=== PATIENT | female | born 1945 | race Caucasian/White ===

== ENCOUNTER 2017-12-13 12:09 | Emergency (ER) | payer MEDICARE ==
[2017-12-13] MEDS ORDERED: ISOVUE-370 76%-LOCM 1 ML ONE (14:08)
[2017-12-13 14:11] LABS: #Lymphocytes 1.4 thou/uL (1.20-3.40); #Monocytes 0.7 thou/uL (0.11-0.59); #Neutrophils 5.5 thou/uL (1.40-6.50); %Basophils 0.6 % (0.0-1.0); %Eosinophils 0.3 % (0.0-10.0); %Lymphocytes 18.7 % (21.0-51.0); %Monocytes 9.4 % (0.0-10.0); Hemoglobin 14.1 g/dL (12.0-16.0); Mean Corpuscular HGB CONC 31.6 g/dL (32.0-36.0); Mean Corpuscular Hemoglobin 31.2 pg (27.0-31.0); Mean Corpuscular Volume 98.9 fl (81.0-99.0); Platelet Count 217 thou/uL (130-400); RBC Distribution Width 13.9 % (11.5-14.5); Red Blood Cell (RBC) Count 4.53 mill/uL (4.20-5.40); White Blood Cell (WBC) Count 7.7 thou/uL (4.8-10.8)
[2017-12-13 14:32] LABS: ALT (SGPT) 107 U/L (8-55); AST (SGOT) 55 U/L (5-34); Albumin 3.9 g/dL (3.4-4.8); Alkaline Phosphatase 79 U/L (40-150); Anion Gap 12 mmol/L (10-20); BUN (Urea Nitrogen) 20 mg/dL (9.8-20.1); Bilirubin, Total 1.2 mg/dL (0.2-1.2); Calc. Creatinine Clearance 0 mL/min (70-130); Calcium 9.4 mg/dL (7.8-10.44); Carbon Dioxide 26 mmol/L (23-31); Chloride 108 mmol/L (98-107); Estimated GFR-MDRD Greater than 90; Globulin 2.3 g/dL (2.4-3.5); Glucose 115 mg/dL (83-110); Potassium 4.3 mmol/L (3.5-5.1); Protein, Total 6.2 g/dL (6.0-8.3); Sodium 142 mmol/L (136-145)
--- NOTE | 2017-12-13 15:25 | CT ---
CT CHEST AND ABDOMEN ANDP JAIDEN WITH IV CONTRAST: Date: 12/13/17 PROVIDED CLINICAL HISTORY: Right breast mass. FINDINGS: No comparison examinations are currently available. Vascular calcifications noted, including coronary calcium. The heart is enlarged, primarily on the ba sis of right atrial and right ventricular enlargement. Aortic valvular region calcifications are also seen. Conspicuous by number but not pathologically enlarged lymph nodes are present within the mediastinum. The lungs are free of significant opacity. Trace right pleural fluid is present. There is a large right breast mass which appears solid. This measures at least 12.0 x 5.8 cm in great est axial dimensions. The deep margin of this mass approximates the right chest wall, though a fat pl ane between the mass and the ribs in this region is seen. Multiple nodular masses are present through out the lateral right breast, which appear asymmetric with respect to the left. Multiple enlarged lym ph nodes are seen within the right axillary region. Nonspecific subcentimeter left thyroid lobe hypod ensity. The liver, spleen, pancreas, kidneys, and adrenal glands demonstrate no acute abnormality. There is n o bowel dilatation, inflammatory fat stranding, free fluid, or lymph node enlargement apparent. The osseous structures demonstrate no definite concerning lytic or blastic lesion. There is a 12.0 mm sclerotic focus in the medial right iliac wing which is indeterminate. IMPRESSION: 1. Large right breast mass with numerous satellite lesions and right axillary adenopathy, compatible with malignancy. 2. Indeterminate 12 mm sclerotic right iliac wing lesion. Consider correlating with whole body bone scan on a nonemergent basis. 3. Trace right pleural fluid. 4. Other findings as described above. POS: JEROD
== END 2017-12-13 16:54 | disposition home or self-care (01) ==
LOC: ERS 12:09
DX: C50.911 Malignant neoplasm of unspecified site of right female breast (principal)
CPT/HCPCS: 71260; 74177; 80053; 85025; 99282

== ENCOUNTER 2017-12-18 08:52 | Day surgery (SDC) | payer MEDICARE ==
[2017-12-18] MEDS ORDERED: CEFAZOLIN/Water 2 GM/20 ML SYRINGE ONE (09:22)
[2017-12-18] MEDS ORDERED: Fentanyl 250 MCG/5 ML VIAL ONE (09:37)
[2017-12-18] MEDS ORDERED: Midazolam HCl 2 mg/2 ml Vial ONE ×2 (09:37→09:53)
[2017-12-18] MEDS ORDERED: Propofol 500 MG/50 ML VIAL ONE (09:38)
[2017-12-18] MEDS ORDERED: Bupivacaine/Epinephrine 0.25% 30 ML VIAL ONE (09:47)
--- NOTE | 2017-12-18 13:02 | OP ---
DATE OF PROCEDURE: 12/18/2017 PREOPERATIVE DIAGNOSES: Advanced right breast cancer with metastatic disease. SURGEON: Curtis Lorenzo M.D. PROCEDURE PERFORMED: MediPort placement. INDICATIONS: A 72-year-old female with advanced breast cancer needs neoadjuvant therapy. FINDINGS: Good backflow of venous blood. J-wire threaded easily, placed in the left subclavian vein . PROCEDURE: After informed consent was obtained, the patient was taken to the operating room, given t otal intravenous anesthesia, placed in the supine position. Chest and neck prepped and draped in usu al fashion. Local anesthesia infiltrated subcutaneously and deep. An introducer needle inserted. L eft subclavian with good backflow of venous blood. J-wire threaded easily. Fluoroscopy was used, sh owed good placement in the superior vena cava. Skin and subcutaneous then anesthetized with local an esthesia. Transverse chest wall incision was performed. The subcu divided sharply. A pocket create d sharply on the pectoralis fascia. The tunneling device was used to connect the 2 incisions and the catheter brought through the tunnel. The catheter connected to the MediPort and the system flushed with heparinized saline. The MediPort was sutured to the pectoralis fascia with interrupted 2-0 Prol liza suture. Then the catheter was cut to size and the peel-away introducer inserted over the wire. The wire was removed and the catheter inserted through the peel-away introducer, then the peel-away i ntroducer removed. Fluoroscopy again used showed good placement in superior vena cava. The subcu wa s reapproximated with interrupted 3-0 Vicryl. Skin closed with interrupted 4-0 Rapide. Dermabond ap plied. The MediPort was accessed with Amanda needle and aspirated. Good backflow of venous blood and flushed with heparinized saline. The patient tolerated the procedure well and was transferred to [facility] in good condition. Sponge and needle count verified correct x2.
--- NOTE | 2017-12-18 13:15 | RAD ---
CHEST 1 VIEW: HISTORY: A 72-year-old female with a history of postop MediPort placement. COMPARISON: CT dry plasterer film 12/13/17. FINDINGS: There is stable cardiomegaly. Left subclavian catheter and injection port placed. No evidence for p neumothorax or pleural effusion. Less than optimal inspiratory effort. No confluent pneumonia or ot her acute process. IMPRESSION: Left subclavian catheter injection port placement without pneumothorax or pleural effusion. Cardiome dolores. Less than optimal inspiration. POS: JEROD
[2017-12-18] MEDS ORDERED: PROPOFOL 200 MG/20 ML VIAL ONE (18:16)
[2017-12-18] MEDS ORDERED: Ondansetron HCl/PF 4 MG/2 ML Vial ONE (18:16)
[2017-12-18] MEDS ORDERED: Lidocaine 1% PF 5 ML VIAL ONE (18:16)
== END 2017-12-18 12:22 | disposition home or self-care (01) ==
LOC: SDC 08:52
PROVIDERS: ATTEND Surgery
PROC: 02HV33Z Insertion of Infusion Device into Superior Vena Cava, Percutaneous Approach (ICD-10-PCS; principal; 2017-12-18)
PROC: B518ZZA Fluoroscopy of Superior Vena Cava, Guidance (ICD-10-PCS; 2017-12-18)
DX: C50.911 Malignant neoplasm of unspecified site of right female breast (principal)
CPT/HCPCS: 36561; 71045; C1788; J1642; J2001; J2250; J2405; J2704; J3010

== ENCOUNTER 2017-12-21 10:33 | Outpatient (CLI) | payer MEDICARE ==
--- NOTE | 2017-12-21 15:29 | NM ---
WHOLE BODY BONE SCAN: COMPARISON: CT chest and abdomen and pelvis 12/13/17. HISTORY: Malignant neoplasm of the right breast. There is an overlapping site to the right female breast. TECHNIQUE: A whole body bone scan was performed after the administration of 32 mCi of Technetium 99m MDP. FINDINGS: Soft tissue activity is unremarkable. There is increased uptake of the radiopharmaceutical in both k nees likely secondary to degenerative change. No suspicious areas of increased or decreased uptake o f the radiopharmaceutical are seen to suggest osseous metastases. In particular, no abnormal increas ed uptake is seen adjacent to the right sacroiliac joint where the sclerotic lesion was seen on CT. IMPRESSION: No evidence of osseous metastatic disease. POS: JEROD
== END 2017-12-21 10:34 | disposition home or self-care (01) ==
LOC: NM 10:33
PROVIDERS: ATTEND Internal Medicine Hematology & Oncology
DX: C50.811 Malignant neoplasm of overlapping sites of right female breast (principal)
CPT/HCPCS: 78306; A9503

== ENCOUNTER 2018-03-17 14:27 | Inpatient (IN) | payer MEDICARE ==
[2018-03-17 15:13] LABS: #Lymphocytes 1.3 thou/uL (1.20-3.40); #Monocytes 0.3 thou/uL (0.11-0.59); #Neutrophils 1.5 thou/uL (1.40-6.50); %Basophils 0.1 % (0.0-1.0); %Eosinophils 0.2 % (0.0-10.0); %Lymphocytes 42.2 % (21.0-51.0); %Monocytes 8.1 % (0.0-10.0); %Neutrophils 49.5 % (42.0-75.0); Hemoglobin 11.3 g/dL (12.0-16.0); Mean Corpuscular HGB CONC 33.7 g/dL (32.0-36.0); Mean Corpuscular Hemoglobin 33.2 pg (27.0-31.0); Mean Corpuscular Volume 98.5 fl (81.0-99.0); Mean Platelet Volume 7.1 fL (7.4-10.4); Platelet Count 268 thou/uL (130-400); Red Blood Cell (RBC) Count 3.39 mill/uL (4.20-5.40); White Blood Cell (WBC) Count 3.1 thou/uL (4.8-10.8)
[2018-03-17 15:25] LABS: Anisocytosis SLIGHT = 6-15 cells (100X) (0-5/hpf); MDiff Complete? YES; Ovalocytes SLIGHT = 2-5 cells (100X) (0-1/hpf); PLT Morphology Comment Appears Adequate; Polychromasia SLIGHT = 2-3 cells (100X) (0-2/hpf)
[2018-03-17 15:35] LABS: Anion Gap 14 mmol/L (10-20); BUN (Urea Nitrogen) 8 mg/dL (9.8-20.1); Calc. Creatinine Clearance 0 mL/min (70-130); Calcium 9.1 mg/dL (7.8-10.44); Carbon Dioxide 26 mmol/L (23-31); Chloride 102 mmol/L (98-107); Estimated GFR-MDRD 90; Glucose 108 mg/dL (83-110); Potassium 3.5 mmol/L (3.5-5.1); Sodium 138 mmol/L (136-145)
[2018-03-17] MEDS: Sodium Chloride 0.9% 1,000 ML IV SCH (17:14)
[2018-03-17] MEDS ORDERED: HYDROcodone/Acetaminophen 5/325 mg Tablet PO PRN ×2 (18:39)
[2018-03-17] MEDS ORDERED: Docusate 100 MG CAP PO PRN (18:39)
[2018-03-17] MEDS ORDERED: Ibuprofen 200 MG TAB PO PRN (18:39)
[2018-03-17] MEDS ORDERED: Promethazine 25 MG TAB PO PRN (18:40)
[2018-03-17] MEDS ORDERED: Ondansetron ODT 8 MG TAB PO PRN (18:40)
[2018-03-17] MEDS ORDERED: Sodium Chloride 0.65% Nasal 44 ML BOT EA NARE PRN (18:41)
[2018-03-17] MEDS: Apixaban 5 MG TAB PO SCH (21:08)
[2018-03-18] MEDS: Sodium Chloride 0.9% 1,000 ML IV SCH ×3 (02:28→22:28)
--- NOTE | 2018-03-18 08:52 | RAD ---
FRONTAL AND LATERAL IMAGING OF THE CHEST: DATE: 03/18/18. COMPARISON: 12/18/17. HISTORY: Pleural fluid. FINDINGS: There is a CT injectable left-sided Port-A-Cath present. On the lateral examination, it's distal tip is directed posteriorly, which may signify that its dista l tip is within the azygous vein. No pneumothorax is seen. There is small volume pleural effusion b ilaterally, left greater than right. Cardiac silhouette is prominent. IMPRESSION: 1. Distal tip of Port-A-Cath likely in the region of the azygous vein. 2. Small bilateral pleural effusions with prominence of the cardiac silhouette as detailed above. POS: SOHAIL
[2018-03-18] MEDS: Loratadine 10 MG TAB PO SCH (09:49)
[2018-03-18] MEDS: Multivit, Therapeutic 1 TAB PO SCH (09:49)
[2018-03-18] MEDS: Stress 600 With Zinc 1 TAB PO SCH (09:51)
[2018-03-18 09:57] LABS: ALT (SGPT) 11 U/L (8-55); AST (SGOT) 14 U/L (5-34); Albumin 3.1 g/dL (3.4-4.8); Alkaline Phosphatase 50 U/L (40-150); Anion Gap 12 mmol/L (10-20); BUN (Urea Nitrogen) 7 mg/dL (9.8-20.1); Bilirubin, Total 1.3 mg/dL (0.2-1.2); Calc. Creatinine Clearance 129 mL/min (70-130); Calcium 8.2 mg/dL (7.8-10.44); Carbon Dioxide 25 mmol/L (23-31); Chloride 108 mmol/L (98-107); Estimated GFR-MDRD Greater than 90; Glucose 103 mg/dL (83-110); Magnesium 1.4 mg/dL (1.6-2.6); Potassium 3.2 mmol/L (3.5-5.1); Protein, Total 5.1 g/dL (6.0-8.3); Sodium 142 mmol/L (136-145)
[2018-03-18 11:49] VITALS: BMI 32.7
[2018-03-18] MEDS: Apixaban 5 MG TAB PO SCH (14:12)
[2018-03-18] MEDS ORDERED: Magnesium 2 GM/NS 0.9% 100 ML 2 GM in Premix Bag 1 BAG IVPB SCH (17:00)
[2018-03-18] MEDS ORDERED: Furosemide 40 MG/4 ML VIAL IVP SCH (17:15)
[2018-03-18] MEDS ORDERED: Potassium Chloride 40 MEQ in Sodium Chloride 0.9% 250 ML 250 ML IVPB SCH (17:15)
[2018-03-18] MEDS: Digoxin 0.25 MG TAB PO SCH (18:23)
[2018-03-18] MEDS: Enoxaparin Sodium 100 MG/ML SYRINGE SC SCH (20:22)
[2018-03-18] MEDS ORDERED: Diltiazem HCl SR 60 mg Capsule PO ONE (21:00)
[2018-03-19] MEDS: Digoxin 0.25 MG TAB PO SCH ×2 (01:18→11:12)
[2018-03-19 05:40] LABS: Anion Gap 12 mmol/L (10-20); BUN (Urea Nitrogen) 6 mg/dL (9.8-20.1); Calc. Creatinine Clearance 125 mL/min (70-130); Calcium 8.9 mg/dL (7.8-10.44); Carbon Dioxide 25 mmol/L (23-31); Chloride 108 mmol/L (98-107); Estimated GFR-MDRD Greater than 90; Glucose 127 mg/dL (83-110); Potassium 3.9 mmol/L (3.5-5.1); Sodium 141 mmol/L (136-145)
[2018-03-19 05:57] LABS: Band 6 % (5-11); Hemoglobin 11.1 g/dL (12.0-16.0); Lymphocytes 40 % (21-51); MDiff Complete? YES; Mean Corpuscular Hemoglobin 32.7 pg (27.0-31.0); Mean Corpuscular Volume 98.9 fl (81.0-99.0); Metamyelocyte 1 % (0-0); Monocytes 1 % (0-10); Neutrophil 52 % (42-75); PLT Morphology Comment Appears Adequate; Platelet Count 307 thou/uL (130-400); RBC Distribution Width 17.8 % (11.5-14.5); Red Blood Cell (RBC) Count 3.38 mill/uL (4.20-5.40); White Blood Cell (WBC) Count 3.5 thou/uL (4.8-10.8)
[2018-03-19] MEDS: Sodium Chloride 0.9% 1,000 ML IV SCH ×2 (08:25→21:40)
[2018-03-19] MEDS: Enoxaparin Sodium 100 MG/ML SYRINGE SC SCH ×2 (08:30→20:31)
[2018-03-19] MEDS: Stress 600 With Zinc 1 TAB PO SCH (08:32)
[2018-03-19] MEDS: Multivit, Therapeutic 1 TAB PO SCH (08:32)
[2018-03-19] MEDS: Loratadine 10 MG TAB PO SCH (08:32)
--- NOTE | 2018-03-19 08:59 | PRG ---
DATE OF SERVICE: 03/19/2018 SUBJECTIVE: Ms. Dickens appears to be slowly improving. She continues to be on IV Cardizem in additi on to p.o. Cardizem. She received a total of 240 mg yesterday morning and then an additional 60 mg y evening. I have increased her p.o. a.m. Cardizem to 360 q.a.m. She has no current complain ts. She did receive 1 dose of Lasix yesterday with appropriate diuresis. Her potassium and magnesiu m levels were also decreased and was supplemented with IV magnesium and p.o. potassium with appropria te improvement. OBJECTIVE: VITAL SIGNS: Blood pressure 100/79, pulse 100-120, temperature 97.3. LUNGS: Clear to auscultation. CARDIAC: Irregularly irregular, tachycardic. ABDOMEN: Soft, nontender, nondistended. EXTREMITIES: A 1-2+ pitting edema. PERTINENT LABORATORY DATA: Hemoglobin 11.1, white blood cell count 3.5. Sodium 141, potassium 3.9, creatinine 0.6. BNP of 403. Magnesium level 1.9. IMPRESSION: 1. Atrial fibrillation with rapid ventricular response. 2. Breast cancer. RECOMMENDATIONS: We will increase Cardizem to 360 q.a.m. We will add metoprolol 25 mg 1 p.o. b.i.d. and additionally digoxin 0.125 one p.o. q.a.m. We will try and continue to titrate her beta daniel and calcium channel daniel through the day and through the weekend. If she continues to require IV Cardizem by Thursday, we would recommend a MORIS with cardioversion. I discussed the procedure in full detail with Ms. Dickens. Her daughter, who is a nurse, was present during the discussion. Risks incl uded but are not limited to the following: Damage to teeth, mouth, back of the throat, damage to eso phagus requiring emergency surgery. This will be performed under conscious sedation. I also discuss ed a MORIS cardioversion including risk of stroke, burning of skin, failed cardioversion, or need for r epeat cardioversion. We would recommend adding propafenone tomorrow in anticipation of cardioversion on Thursday if needed.
[2018-03-19] MEDS ORDERED: Metoprolol Tartrate 25 MG TAB PO SCH (09:00)
[2018-03-20] MEDS: Metoprolol Tartrate 25 MG TAB PO SCH ×3 (00:50→21:41)
[2018-03-20] MEDS: Enoxaparin Sodium 100 MG/ML SYRINGE SC SCH ×2 (10:25→21:42)
[2018-03-20] MEDS: Stress 600 With Zinc 1 TAB PO SCH (10:27)
[2018-03-20] MEDS: Sodium Chloride 0.9% 1,000 ML IV SCH (10:28)
[2018-03-20] MEDS: Multivit, Therapeutic 1 TAB PO SCH (10:28)
[2018-03-20] MEDS: Loratadine 10 MG TAB PO SCH (10:28)
[2018-03-20] MEDS ORDERED: Sodium Chloride 0.9% 1,000 ML IV SCH (18:14)
[2018-03-20] MEDS: Apixaban 5 MG TAB PO SCH (21:41)
[2018-03-21] MEDS: Sodium Chloride 0.9% 1,000 ML IV SCH (02:43)
[2018-03-21 05:49] LABS: Anion Gap 12 mmol/L (10-20); BUN (Urea Nitrogen) 14 mg/dL (9.8-20.1); Calc. Creatinine Clearance 71 mL/min (70-130); Calcium 8.8 mg/dL (7.8-10.44); Carbon Dioxide 24 mmol/L (23-31); Chloride 109 mmol/L (98-107); Estimated GFR-MDRD 52; Glucose 115 mg/dL (83-110); Magnesium 2.1 mg/dL (1.6-2.6); Potassium 3.9 mmol/L (3.5-5.1); Sodium 141 mmol/L (136-145)
[2018-03-21 06:03] LABS: Band 3 % (5-11); Eosinophils 1 % (0-10); Hemoglobin 10.7 g/dL (12.0-16.0); Lymphocytes 21 % (21-51); MDiff Complete? YES; Mean Corpuscular HGB CONC 32.4 g/dL (32.0-36.0); Mean Corpuscular Hemoglobin 32.9 pg (27.0-31.0); Mean Platelet Volume 7.2 fL (7.4-10.4); Metamyelocyte 1 % (0-0); Monocytes 11 % (0-10); Neutrophil 63 % (42-75); PLT Morphology Comment Appears Adequate; Platelet Count 312 thou/uL (130-400); RBC Distribution Width 17.9 % (11.5-14.5); Red Blood Cell (RBC) Count 3.25 mill/uL (4.20-5.40); White Blood Cell (WBC) Count 4.9 thou/uL (4.8-10.8)
[2018-03-21] MEDS: Apixaban 5 MG TAB PO SCH (08:57)
[2018-03-21] MEDS: Multivit, Therapeutic 1 TAB PO SCH (08:57)
[2018-03-21] MEDS: Loratadine 10 MG TAB PO SCH (08:58)
[2018-03-21] MEDS: Stress 600 With Zinc 1 TAB PO SCH (09:54)
[2018-03-21 11:59] VITALS: BP 134/88; TEMP 97.3
--- NOTE | 2018-03-21 15:49 | DIS ---
DISCHARGE DIAGNOSES: 1. Paroxysmal atrial fibrillation, chemical conversion to sinus rhythm. 2. Breast cancer. DISCHARGE MEDICATIONS: Eliquis 5 mg b.i.d., Cardizem CD 360 mg daily, Colace 100 mg p.r.n., hydrocodone p.r.n., loratadine 10 mg daily, metoprolol 25 XL q.a.m., multivitamin q.a.m., Zofran 8 mg tablets p.r.n., and Phenergan 25 mg p.r.n. DISCHARGE DISPOSITION: The patient will follow with Dr. Mendoza in 2-3 weeks. HOSPITAL COURSE: Ms. Jimenez was admitted with atrial fibrillation with fast ventricular response. She was initially placed on Lovenox 1 mg/kg b.i.d. This was transitioned to Eliquis 5 mg b.i.d. She was placed on increasing doses of diltiazem to try to control her rate. She ultimately converted to sinus rhythm. Consideration was given to transesophageal echo and cardioversion; however, she converted with the above medications and was discharged. KIMD
== END 2018-03-21 16:17 | disposition home or self-care (01) | DRG 310 ==
LOC: 2NO 14:27
PROVIDERS: ADMIT Internal Medicine Cardiovascular Disease; ATTEND Internal Medicine Cardiovascular Disease
DX: I48.0 Paroxysmal atrial fibrillation (principal); C50.919 Malignant neoplasm of unspecified site of unspecified female breast
CPT/HCPCS: 36415; 71046; 80048; 80053; 82248; 83615; 83735; 83880; 84100; 84550; 85025; A4216; J1642; J1650; J1940; J3475; J3480; J7050

== ENCOUNTER 2018-05-12 06:05 | Day surgery (SDC) | payer MEDICARE ==
[2018-05-11 13:42] VITALS: BMI 31.8
[2018-05-12] MEDS ORDERED: Diazepam 5 MG TAB ONE (06:34)
[2018-05-12] MEDS ORDERED: Iopamidol 370 76% 100 ML VIAL ONE (06:53)
[2018-05-12] MEDS ORDERED: Lidocaine 1% (PF) 30 ML VIAL ONE (08:32)
[2018-05-12] MEDS ORDERED: Fentanyl 100 MCG/2 ML VIAL ONE (08:55)
[2018-05-12] MEDS ORDERED: Midazolam HCl 2 mg/2 ml Vial ONE (08:55)
[2018-05-12] MEDS ORDERED: Heparin 10,000 UNITS/1 ML VIAL ONE (09:02)
[2018-05-12] MEDS ORDERED: Nitroglycerin 100MG/250ML BOT 250 ML ONE (09:13)
--- NOTE | 2018-05-12 15:16 | CON ---
DATE OF CONSULTATION: 05/12/2018 REASON FOR CONSULTATION: Evaluate the patient for coronary artery bypass grafting. HISTORY OF PRESENT ILLNESS: Ms. Dickens is a 72-year-old woman, who was admitted for cardiac catheter ization on an elective basis today. Dr. Mendoza has seen her recently for atrial fibrillation. Mayela matos was able to be converted back into sinus rhythm from her atrial fibrillation. She, unfortunately, also has a history of stage 3B carcinoma of the breast with local invasion through the skin on the ri ght breast. She has completed her chemotherapy and is currently on hormonal therapy only orally. Mayela matos has lost all of her hair. The area of erosion under her right breast has healed, but still has a l arge open area, approximately 3 cm in length. Plans for her breast cancer include continued hormonal therapy to healing and subsequent right mastec ling. The patient, from a cardiac standpoint, has remained asymptomatic. She has had no chest pain. Her s hortness of breath has resolved after converting her back into sinus rhythm. She was monitored with an at-home monitor and found to have a couple of runs of ventricular tachycardia, which were asymptom atic. Due to these VT runs, she was brought in for elective cardiac catheterization. Cardiac cathet erization has shown a 99% lesion in acute marginal, 50-60% left main lesion with a 60% proximal LAD l esion. I have been asked to see her to discuss coronary artery bypass grafting. PAST MEDICAL HISTORY: 1. Hypertension. 2. Dyslipidemia. 3. Stage 3B breast cancer. 4. Coronary artery disease. PAST SURGICAL HISTORY: 1. x2. 2. Breast biopsy. CURRENT MEDICATIONS: 1. Toprol-XL 25 mg every day. 2. Cardizem-CD 360 mg every day. 3. Eliquis 5 mg b.i.d. 4. Anastrozole 1 mg every day. ALLERGIES: None. SOCIAL HISTORY: She does not use tobacco or alcohol. She is and accompanied by her and daughter. PHYSICAL EXAMINATION: GENERAL: This is a moderately obese woman, resting comfortably without chest pain or shortness of br eath. VITAL SIGNS: Heart rate is 78 and regular, blood pressure is 130/72. HEENT: Sclerae nonicteric. Pupils equal and round bilaterally. NECK: Supple, without bruit. LUNGS: Clear bilaterally. She has eroding right breast cancer, which, according to the patient and family, has improved with therapy. HEART: Rhythm is regular. EKG shows normal sinus rhythm. ABDOMEN: Soft and nontender. EXTREMITIES: There is no edema. ASSESSMENT AND PLAN: This is a pleasant 72-year-old woman with a stage 3B breast cancer. I have dis cussed her situation with Dr. Tate and his plan is for mastectomy in the next month or two with co ntinued hormonal therapy. Obviously, with an open wound on her chest, her risk of infection - even though she is not currently undergoing chemotherapy but is on hormonal therapy only - is very high. I really do not see a benefi t to the patient in taking her for a bypass surgery prior to complete resolution of her breast cancer . I have discussed waiting until after her mastectomy is completed and healed to then take her for c oronary artery bypass grafting. She understands that if she has any symptomatology related to her he art, she is to call. I will see her back just to check in with her in a month and we can continue to follow her as an outpatient.
== END 2018-05-12 15:20 | disposition home or self-care (01) ==
LOC: CCL 06:05
PROVIDERS: ATTEND Internal Medicine Cardiovascular Disease
PROC: B2111ZZ Fluoroscopy of Multiple Coronary Arteries using Low Osmolar Contrast (ICD-10-PCS; principal; 2018-05-12)
PROC: B2151ZZ Fluoroscopy of Left Heart using Low Osmolar Contrast (ICD-10-PCS; 2018-05-12)
DX: I25.10 Atherosclerotic heart disease of native coronary artery without angina pectoris (principal); I47.2 Ventricular tachycardia; I48.0 Paroxysmal atrial fibrillation; I10 Essential (primary) hypertension; E78.5 Hyperlipidemia, unspecified; C50.911 Malignant neoplasm of unspecified site of right female breast; Z79.01 Long term (current) use of anticoagulants; Z79.899 Other long term (current) drug therapy
CPT/HCPCS: 76942; 85347; 93005; 93454; C1753; C1769 ×2; C1887; 93010; 99152; 99153; J0153; J1644; J2001; J2250; J3010

== ENCOUNTER 2018-06-21 14:43 | Outpatient (CLI) | payer MEDICARE ==
[2018-06-21 15:47] LABS: #Eosinphils 0.2 thou/uL (0.0-0.7); #Lymphocytes 1.8 thou/uL (1.20-3.40); #Monocytes 0.8 thou/uL (0.11-0.59); #Neutrophils 5.2 thou/uL (1.40-6.50); %Basophils 0.6 % (0.0-1.0); %Eosinophils 1.9 % (0.0-10.0); %Lymphocytes 22.4 % (21.0-51.0); %Monocytes 9.9 % (0.0-10.0); %Neutrophils 65.3 % (42.0-75.0); Hemoglobin 14.7 g/dL (12.0-16.0); Mean Corpuscular HGB CONC 33.3 g/dL (32.0-36.0); Mean Corpuscular Hemoglobin 32.6 pg (27.0-31.0); Mean Corpuscular Volume 97.8 fL (78.0-98.0); Mean Platelet Volume 6.8 fL (7.4-10.4); Platelet Count 288 thou/uL (130-400); Red Blood Cell (RBC) Count 4.51 mill/uL (4.20-5.40)
[2018-06-21 16:10] LABS: ALT (SGPT) 36 U/L (8-55); AST (SGOT) 26 U/L (5-34); Alkaline Phosphatase 91 U/L (40-150); Anion Gap 14 mmol/L (10-20); BUN (Urea Nitrogen) 21 mg/dL (9.8-20.1); Bilirubin, Total 0.4 mg/dL (0.2-1.2); Calc. Creatinine Clearance 0 mL/min (70-130); Carbon Dioxide 26 mmol/L (23-31); Chloride 102 mmol/L (98-107); Estimated GFR-MDRD 65; Globulin 2.8 g/dL (2.4-3.5); Glucose 164 mg/dL (83-110); Potassium 4.1 mmol/L (3.5-5.1); Protein, Total 6.8 g/dL (6.0-8.3); Sodium 138 mmol/L (136-145)
== END 2018-06-21 14:44 | disposition home or self-care (01) ==
LOC: LABBT 14:43
PROVIDERS: ATTEND Surgery
DX: Z01.818 Encounter for other preprocedural examination (principal); C50.911 Malignant neoplasm of unspecified site of right female breast
CPT/HCPCS: 80053; 85025

== ENCOUNTER 2018-06-28 06:46 | Inpatient (IN) | payer MEDICARE ==
[2018-06-21 15:03] VITALS: BMI 32.9
[2018-06-28] MEDS ORDERED: CEFAZOLIN/Water 2 GM/20 ML SYRINGE ONE (08:19)
[2018-06-28] MEDS ORDERED: Bupivacaine HCl 0.5%/Epinephrine 1:200,000/PF 30 ml Vial ONE (08:32)
[2018-06-28] MEDS ORDERED: Isosulfan Blue 50 MG/5 ML VIAL ONE (08:32)
[2018-06-28] MEDS ORDERED: Fentanyl 100 MCG/2 ML VIAL ONE ×3 (08:36→11:57)
[2018-06-28] MEDS ORDERED: Midazolam HCl 2 mg/2 ml Vial ONE ×2 (08:58→09:14)
[2018-06-28] MEDS ORDERED: Sodium Chloride 0.9% 10 ML ONE (09:10)
[2018-06-28] MEDS ORDERED: hydrALAZINE 20 MG/ML VIAL SLOW IVP PRN (11:08)
[2018-06-28] MEDS ORDERED: Dextrose 5% in Water 1,000 ML IV PRN (11:08)
[2018-06-28] MEDS ORDERED: HYDROcodone/Acetaminophen 10/325 mg Tablet PO PRN (11:08)
[2018-06-28] MEDS ORDERED: Dextrose 50% Abboject 50 ML SYRINGE SLOW IVP PRN (11:08)
[2018-06-28] MEDS ORDERED: Promethazine HCl 25 MG/ML VIAL IM PRN (11:08)
[2018-06-28] MEDS ORDERED: Ondansetron HCl/PF 4 MG/2 ML Vial IVP PRN (11:08)
--- NOTE | 2018-06-28 11:58 | OP ---
DATE OF PROCEDURE: 06/28/2018 PREOPERATIVE DIAGNOSIS: Advanced right breast cancer. SURGEON: Dr. Curtis Lorenzo PROCEDURE: Right modified radical mastectomy. INDICATIONS: This is a 73-year-old female who had neglected right breast cancer eroding through the skin with foul smelling fungating tumor who underwent preoperative neoadjuvant treatment with chemo a nd radiation. It had healed. Prior to treatment she had obvious sarthak involvement. FINDINGS: A lot of scar tissue, right breast and axillary node package were sent. PROCEDURE IN DETAIL: After informed consent was obtained, the patient was taken to the operating ana maria m and given general endotracheal anesthesia. She was placed in the supine position. Her right chest and axilla were prepped and draped in usual fashion. An elliptical incision was performed to excise the breast nipple areola complex as well as see the upper submammary fold which was involved preoper ative with the tumor. This was done utilizing the plasma blade. The plane was developed between sub cutaneous tissue and breast tissue utilizing the plasma blade to the level just below the clavicle hudson periorly to the sternum medially to the below the rectus inferiorly to latissimus laterally. Now the re was scar that involved the muscle, so I did take some muscle with the specimen where the tumor had been the largest. This specimen was marked with a suture superior and sent to pathology for further analysis. Hemostasis was achieved utilizing a Plasma Blade as well as 3-0 Vicryl stick ties. Then the deltopectoral fascia was incised. The subcu divided sharply. The axillary vein was identified. The tissue was taken off the axillary fat pad utilizing the LigaSure. Then along the chest wall julio c e clips were used as well as the plasma blade. The tissue was dissected off the thoracodorsal nerve and vessels using blunt and sharp dissection. Hemostasis assured. Specimen sent to pathology for fu rther analysis. The wound was thoroughly irrigated with saline. Hemostasis assured. Two 19 German drains were placed, one in the axilla and one under the flap. Then the subcu was reapproximated with interrupted 3-0 Vicryl and the skin closed with a running subcuticular 4-0 Rapide. Steri-Strips adrian lied. Sterile bandages applied. The patient tolerated the procedure well and was transferred to [facility] in good condition. Sponge and needle count verified correct x2.
[2018-06-28] MEDS ORDERED: PROPOFOL 200 MG/20 ML VIAL ONE (12:44)
[2018-06-28] MEDS ORDERED: Dexamethasone 20 MG/5 ML VIAL ONE (12:44)
[2018-06-28] MEDS ORDERED: Succinylcholine Chloride 20 MG/ML 10 ml SYRINGE FS ONE (12:44)
[2018-06-28] MEDS ORDERED: Ondansetron HCl/PF 4 MG/2 ML Vial ONE (12:44)
[2018-06-28] MEDS: HYDROcodone/Acetaminophen 10/325 mg Tablet PO PRN ×2 (14:34→21:37)
[2018-06-28] MEDS: Lactated Ringer's 1,000 ML IV SCH (15:10)
[2018-06-28] MEDS: Docusate 100 MG CAP PO SCH (21:36)
[2018-06-28] MEDS: Famotidine 20 MG TAB PO SCH (21:36)
[2018-06-29] MEDS: HYDROcodone/Acetaminophen 10/325 mg Tablet PO PRN ×2 (04:45→12:17)
[2018-06-29 05:39] LABS: #Lymphocytes 1.6 thou/uL (1.20-3.40); #Monocytes 0.9 thou/uL (0.11-0.59); #Neutrophils 8.9 thou/uL (1.40-6.50); %Basophils 0.1 % (0.0-1.0); %Eosinophils 0.1 % (0.0-10.0); %Lymphocytes 14.2 % (21.0-51.0); %Monocytes 7.9 % (0.0-10.0); %Neutrophils 77.7 % (42.0-75.0); Mean Corpuscular HGB CONC 32.1 g/dL (32.0-36.0); Mean Corpuscular Hemoglobin 31.6 pg (27.0-31.0); Mean Corpuscular Volume 98.5 fL (78.0-98.0); Mean Platelet Volume 6.8 fL (7.4-10.4); Platelet Count 252 thou/uL (130-400); RBC Distribution Width 12.9 % (11.5-14.5); Red Blood Cell (RBC) Count 3.81 mill/uL (4.20-5.40); White Blood Cell (WBC) Count 11.5 thou/uL (4.8-10.8)
[2018-06-29 05:54] LABS: Anion Gap 9 mmol/L (10-20); BUN (Urea Nitrogen) 20 mg/dL (9.8-20.1); Calc. Creatinine Clearance 113 mL/min (70-130); Calcium 9.2 mg/dL (7.8-10.44); Carbon Dioxide 29 mmol/L (23-31); Chloride 105 mmol/L (98-107); Estimated GFR-MDRD Greater than 90; Glucose 161 mg/dL (83-110); Potassium 4.2 mmol/L (3.5-5.1); Sodium 139 mmol/L (136-145)
[2018-06-29] MEDS: Famotidine 20 MG TAB PO SCH (08:56)
[2018-06-29] MEDS: Docusate 100 MG CAP PO SCH (08:57)
[2018-06-29] MEDS ORDERED: Enoxaparin Sodium 40 MG/0.4 ML SYRINGE SC SCH (09:00)
[2018-06-29] MEDS: Lactated Ringer's 1,000 ML IV SCH (11:43)
[2018-06-29 12:00] VITALS: BP 127/75; TEMP 97.5
[2018-06-29] MEDS ORDERED: Anastrozole 1 MG TAB PO SCH (12:00)
--- NOTE | 2018-06-29 15:44 | DIS ---
DISCHARGE DIAGNOSIS: Right breast cancer. PROCEDURES DURING ADMISSION: Right modified radical mastectomy. HOSPITAL COURSE: The patient was admitted, taken to the operating room. She underwent a mastectomy. Postoperatively, she has done well. She is being discharged home with home health and PT/OT. She will follow up with me in 2 days for wound check and possible drain removal. DISCHARGE MEDICATIONS: Her usual medications plus hydrocodone. She will resume her Eliquis on .
[2018-06-30] MEDS ORDERED: Anastrozole 1 MG TAB PO SCH (09:00)
== END 2018-06-29 15:57 | disposition home or self-care (01) | DRG 583 ==
LOC: SDC 06:46 → SURG B 13:01
PROVIDERS: ADMIT Surgery; ATTEND Surgery
PROC: 0HTT0ZZ Resection of Right Breast, Open Approach (ICD-10-PCS; principal; 2018-06-28)
PROC: 07T50ZZ Resection of Right Axillary Lymphatic, Open Approach (ICD-10-PCS; 2018-06-28)
DX: C50.911 Malignant neoplasm of unspecified site of right female breast (principal); Z92.21 Personal history of antineoplastic chemotherapy; I48.91 Unspecified atrial fibrillation; Z79.01 Long term (current) use of anticoagulants
CPT/HCPCS: 80048; 85025; 88309; 96374; A4216; J0670; J1642; J2250; J2270; J3010; Q9968

== ENCOUNTER 2019-09-09 09:20 | Outpatient (CLI) | payer MEDICARE ==
[2019-09-09 14:25] LABS: #Lymphocytes 1.4 thou/uL (1.20-3.40); #Monocytes 0.6 thou/uL (0.11-0.59); #Neutrophils 5.1 thou/uL (1.40-6.50); %Basophils 0.5 % (0.0-1.0); %Eosinophils 0.6 % (0.0-10.0); %Lymphocytes 19.8 % (21.0-51.0); %Monocytes 8.3 % (0.0-10.0); %Neutrophils 70.9 % (42.0-75.0); Hemoglobin 14.7 g/dL (12.0-16.0); Mean Corpuscular HGB CONC 32.1 g/dL (32.0-36.0); Mean Corpuscular Hemoglobin 31.8 pg (27.0-31.0); Mean Platelet Volume 7.3 fL (7.4-10.4); Platelet Count 221 thou/uL (130-400); Red Blood Cell (RBC) Count 4.61 mill/uL (4.20-5.40); White Blood Cell (WBC) Count 7.2 thou/uL (4.8-10.8)
[2019-09-09 14:44] LABS: ALT (SGPT) 18 U/L (8-55); AST (SGOT) 15 U/L (5-34); Albumin 4.2 g/dL (3.4-4.8); Alkaline Phosphatase 99 U/L (40-110); Anion Gap 13 mmol/L (10-20); BUN (Urea Nitrogen) 23 mg/dL (9.8-20.1); Bilirubin, Total 0.7 mg/dL (0.2-1.2); Calc. Creatinine Clearance 0 mL/min (70-130); Calcium 9.5 mg/dL (7.8-10.44); Carbon Dioxide 29 mmol/L (23-31); Chloride 105 mmol/L (98-107); Estimated GFR-MDRD 36; Globulin 2.3 g/dL (2.4-3.5); Glucose 103 mg/dL (83-110); Potassium 4.4 mmol/L (3.5-5.1); Protein, Total 6.5 g/dL (6.0-8.3); Sodium 143 mmol/L (136-145)
--- NOTE | 2019-09-09 17:59 | EKG ---
Test Reason : Blood Pressure : / mmHG Vent. Rate : 086 BPM Atrial Rate : 086 BPM P-R Int : 204 ms QRS Dur : 138 ms QT Int : 410 ms P-R-T Axes : 000 012 -07 degrees QTc Int : 490 ms Sinus rhythm with occasional Premature ventricular complexes and Fusion complexes Right bundle branch block Abnormal ECG When compared with ECG of 12-MAY-2018 07:00, Fusion complexes are now Present Premature ventricular complexes are now Present Confirmed by Shantal JULES ([id number]) on 09/09/2019 5:59:35 PM Referred By: NELLA Confirmed By:Shantal JULES
== END 2019-09-09 09:21 | disposition home or self-care (01) ==
LOC: LABBT 09:20
PROVIDERS: ATTEND Surgery
DX: Z01.818 Encounter for other preprocedural examination (principal); C50.912 Malignant neoplasm of unspecified site of left female breast
CPT/HCPCS: 80053; 85025; 93005; 93010

== ENCOUNTER 2019-09-14 07:03 | Inpatient (IN) | payer MEDICARE ==
[2019-09-09 12:52] VITALS: BMI 34.9
[2019-09-14] MEDS ORDERED: Bupivacaine 0.25% HCL 30 ML VIAL ONE (10:08)
[2019-09-14] MEDS ORDERED: Bupivacaine PF 0.5% 30 ML VIAL ONE (10:08)
[2019-09-14] MEDS ORDERED: Isosulfan Blue 50 MG/5 ML VIAL ONE (10:08)
[2019-09-14] MEDS ORDERED: Glycopyrrolate 0.2 MG/ML 5 ML SYRINGE ONE (10:12)
[2019-09-14] MEDS ORDERED: Ondansetron PF 4 MG/2 ML Vial ONE (10:12)
[2019-09-14] MEDS ORDERED: Rocuronium Bromide 10 MG/ML (10ML VIAL) ONE (10:12)
[2019-09-14] MEDS ORDERED: Lidocaine 1% PF 5 ML VIAL ONE (10:12)
[2019-09-14] MEDS ORDERED: PHENYLEPHRINE-NS 100 MCG/ML 10 ML SYRINGE ONE (10:12)
[2019-09-14] MEDS ORDERED: PROPOFOL 200 MG/20 ML VIAL ONE (10:12)
[2019-09-14] MEDS ORDERED: Succinylcholine Chloride 20 MG/ML 10 ml SYRINGE FS ONE (10:12)
[2019-09-14] MEDS ORDERED: Fentanyl 100 MCG/2 ML VIAL ONE ×4 (10:13→14:35)
--- NOTE | 2019-09-14 10:40 | NM ---
Nuclear medicine lymphoscintigraphy: HISTORY: Malignant neoplasm of unspecified site of unspecified female breast FINDINGS: Patient was injected with 0.416 mCi technetium 99m sulphur colloid subcutaneously in 4 separate locat ions around the breast areolar region at 12:00, 3:00, 6:00, and 9:00 positions. Immediate imaging demonstrates focal increased activity in left axillary lymph node. IMPRESSION: Left axillary sentinel lymph node demonstrated on immediate imaging.
[2019-09-14] MEDS ORDERED: SUGAMMADEX SODIUM 200 MG/2 ML VIAL ONE ×2 (11:52)
[2019-09-14] MEDS ORDERED: Ondansetron PF 4 MG/2 ML Vial IVP PRN (12:12)
[2019-09-14] MEDS ORDERED: Dextrose 50% Abboject 50 ML SYRINGE SLOW IVP PRN (12:12)
[2019-09-14] MEDS ORDERED: Morphine 4 MG/ML VIAL SLOW IVP PRN (12:12)
[2019-09-14] MEDS ORDERED: hydrALAZINE 20 MG/ML VIAL SLOW IVP PRN (12:12)
[2019-09-14] MEDS ORDERED: Dextrose 5% in Water 1,000 ML IV PRN (12:12)
[2019-09-14] MEDS ORDERED: Promethazine HCl 25 MG/ML VIAL IM PRN ×2 (12:12→12:20)
[2019-09-14] MEDS ORDERED: Ondansetron HCl/PF 4 MG/2 ML Vial IVP PRN (12:20)
[2019-09-14] MEDS ORDERED: Meperidine HCl/PF 25 MG/ML VIAL SLOW IVP PRN (12:20)
[2019-09-14] MEDS ORDERED: Promethazine HCl 25 MG/ML VIAL SLOW IVP PRN (12:20)
--- NOTE | 2019-09-14 12:51 | OP ---
DATE OF PROCEDURE: 09/14/2019 PREOPERATIVE DIAGNOSIS: Left breast cancer. PROCEDURES PERFORMED: Lymphoscintigraphy and left total mastectomy with sentinel lymph node biopsy. INDICATIONS: A 74-year-old female, who had had a previous inflammatory right breast cancer, who developed a mass on mammogram that was not palpable. Core biopsy was positive for infiltrating ductal carcinoma. She elected for mastectomy. FINDINGS: A single sentinel node was found high in the axilla. The breast was marked with a suture superior. DESCRIPTION OF PROCEDURE: After informed consent was obtained, the patient was taken to the operating room. She had undergone injection of radionucleotide in the mammography suite. An elliptical incision was performed to include the nipple areola complex. On the upper aspect of that, a plane was developed between subcutaneous tissue and breast tissue to the level of the clavicle superiorly and to the latissimus laterally. This allowed access to the axilla. A baseline count was used with the Neoprobe with counts of about 20, transcutaneous counts of 130 were found, then in-vivo counts of 400 were found. A sentinel node was found, this was dissected out, efferent and afferent lymphatics were ligated with 3-0 Vicryl suture. This was sent as sentinel node. Residual counts were all about 25 or less. So, no other sentinel node was found. The mastectomy then continued. The inferior plane was created down to the rectus muscle inferiorly to the level of the sternum medially and latissimus laterally. Then, the breast was taken off the pectoralis muscle to include the fascia. It was marked with a suture superior. This was all done utilizing the plasma blade. Hemostasis achieved with the plasma blade. The wound was thoroughly irrigated with saline. Two drains were placed, one directed into the axilla, one under the inferior flap. Subcu reapproximated with interrupted 3-0 Vicryl. Dermis reapproximated with interrupted 3-0 Vicryl. Skin closed with a running subcuticular 4-0 Rapide. Steri-Strips applied. Sterile bandage applied. The patient tolerated the procedure well, transferred to Recovery in good condition. Sponge and needle count verified correct x2. Job ID: [id number]
[2019-09-14] MEDS: Morphine 2 MG/ML SYRINGE SLOW IVP PRN ×2 (14:35→17:54)
[2019-09-14] MEDS: D5 1/2 NS w/20 mEq KCL 1,000 ML IV SCH (14:40)
[2019-09-14] MEDS: HYDROcodone/Acetaminophen 7.5/325 mg Tablet PO PRN ×2 (15:39→17:54)
[2019-09-14] MEDS: Docusate 100 MG CAP PO SCH (21:13)
[2019-09-15] MEDS: HYDROcodone/Acetaminophen 7.5/325 mg Tablet PO PRN ×2 (00:17→12:04)
[2019-09-15] MEDS: D5 1/2 NS w/20 mEq KCL 1,000 ML IV SCH (05:52)
[2019-09-15 06:01] LABS: #Monocytes 0.7 thou/uL (0.11-0.59); #Neutrophils 4.6 thou/uL (1.40-6.50); %Basophils 0.4 % (0.0-1.0); %Eosinophils 0.7 % (0.0-10.0); %Lymphocytes 15.5 % (21.0-51.0); %Monocytes 11.5 % (0.0-10.0); %Neutrophils 71.9 % (42.0-75.0); Hemoglobin 12.8 g/dL (12.0-16.0); Mean Corpuscular HGB CONC 32.5 g/dL (32.0-36.0); Mean Corpuscular Hemoglobin 32.7 pg (27.0-31.0); Mean Platelet Volume 7.2 fL (7.4-10.4); Platelet Count 181 thou/uL (130-400); Red Blood Cell (RBC) Count 3.91 mill/uL (4.20-5.40); White Blood Cell (WBC) Count 6.4 thou/uL (4.8-10.8)
[2019-09-15 06:28] LABS: Anion Gap 9 mmol/L (10-20); BUN (Urea Nitrogen) 11 mg/dL (9.8-20.1); Calc. Creatinine Clearance 106 mL/min (70-130); Carbon Dioxide 33 mmol/L (23-31); Chloride 104 mmol/L (98-107); Estimated GFR-MDRD 81; Glucose 118 mg/dL (83-110); Potassium 4.5 mmol/L (3.5-5.1); Sodium 141 mmol/L (136-145)
[2019-09-15] MEDS ORDERED: Famotidine 20 MG TAB PO SCH (09:00)
[2019-09-15] MEDS ORDERED: Enoxaparin Sodium 40 MG/0.4 ML SYRINGE SC SCH (09:00)
--- NOTE | 2019-09-15 11:34 | PRG ---
DATE OF SERVICE: 09/15/2019 SUBJECTIVE: The patient is postop day 1 left total mastectomy. She is having a lot of pain. She is having difficulty keeping the pain under control, and she requests to stay another day. OBJECTIVE: VITAL SIGNS: On examination, temperature is 98.4, pulse 83, and blood pressure is 136/63. GENERAL: She is awake and alert. BREASTS: The dressing is dry. Her drain has put out . LABORATORY DATA: Her white count is 6.4, H and H 12 and 39, and platelet count 181. Electrolytes are fine. ASSESSMENT: Stable, but poor pain control. PLAN: The plan is to ambulate from tomorrow. Job ID: [id number]
[2019-09-15 11:52] VITALS: BP 141/61; TEMP 98.5
[2019-09-15] MEDS: Docusate 100 MG CAP PO SCH (11:53)
--- NOTE | 2019-09-16 13:52 | DIS ---
DATE OF ADMISSION: 09/14/2019 DATE OF DISCHARGE: 09/15/2019 DISCHARGE DIAGNOSIS: Left breast cancer. PROCEDURES DURING ADMISSION: Left total mastectomy with sentinel lymph node biopsy. HOSPITAL COURSE: Patient was admitted, taken to the operating room, where she underwent a sentinel node biopsy and mastectomy. Postoperatively, she has done well. Pain is controlled on p.o. medications. She is discharged home on her usual medications but will hold the Xarelto until tomorrow. She will follow up with me on Thursday and continue drain recording until then b.i.d. Job ID: [id number]
== END 2019-09-15 15:06 | disposition home or self-care (01) | DRG 581 ==
LOC: SDC 07:03 → 3SE 07:04 → UNDOADMIN 07:04
PROVIDERS: ADMIT Surgery; ATTEND Surgery
PROC: 07B60ZX Excision of Left Axillary Lymphatic, Open Approach, Diagnostic (ICD-10-PCS; principal; 2019-09-14)
PROC: 0HTU0ZZ Resection of Left Breast, Open Approach (ICD-10-PCS; 2019-09-14)
PROC: C71LYZZ Planar Nuclear Medicine Imaging of Upper Chest Lymphatics using Other Radionuclide (ICD-10-PCS; 2019-09-14)
DX: C50.912 Malignant neoplasm of unspecified site of left female breast (principal); Z90.11 Acquired absence of right breast and nipple; Z83.3 Family history of diabetes mellitus; Z80.8 Family history of malignant neoplasm of other organs or systems
CPT/HCPCS: 36415; 78195; 80048; 85025; 88307; 88342; A9541; J0690; J1650; J2001; J2270; J2405; J2704; J3010; Q9968; S0020

== ENCOUNTER 2024-08-08 12:41 | Outpatient (CLI) | payer MEDICARE ==
[2024-08-08 14:19] LABS: #Basophils Less than 0.03 10x3/uL (0.0-0.2); %Basophils 0.3 % (0.0-1.0); %Eosinophils 0.6 % (0.0-10.0); %Lymphocytes 26.8 % (21.0-51.0); %Monocytes 9.7 % (0.0-10.0); %Neutrophils 62.3 % (42.0-75.0); Hematocrit 40.7 % (36.0-47.0); Hemoglobin 12.7 g/dL (12.0-16.0); Mean Corpuscular HGB CONC 31.2 g/dL (32.0-36.0); Mean Corpuscular Hemoglobin 30.2 pg (27.0-31.0); Mean Corpuscular Volume 96.9 fL (78.0-98.0); Mean Platelet Volume 10.1 fL (7.4-10.4); Platelet Count 158 10x3/uL (130-400); RBC Distribution Width 15.7 % (11.5-14.5)
[2024-08-08 14:38] LABS: ALT (SGPT) 10 U/L (8-55); AST (SGOT) 16 U/L (5-34); Albumin 3.6 g/dL (3.4-4.8); Alkaline Phosphatase 52 U/L (40-110); Anion Gap 12 mmol/L (10-20); BUN (Urea Nitrogen) 18 mg/dL (9.8-20.1); Bilirubin, Total 0.7 mg/dL (0.2-1.2); Calc. Creatinine Clearance 0 mL/min (70-130); Calcium 9.2 mg/dL (7.8-10.44); Carbon Dioxide 26 mmol/L (23-31); Chloride 106 mmol/L (98-107); Estimated GFR 86; Globulin 2.9 g/dL (2.4-3.5); Glucose 127 mg/dL (83-110); Potassium 4.2 mmol/L (3.5-5.1); Protein, Total 6.5 g/dL (5.8-8.1); Sodium 140 mmol/L (136-145)
== END 2024-08-08 12:42 | disposition home or self-care (01) ==
LOC: LABBT 12:41
PROVIDERS: ATTEND Surgery
DX: Z01.812 Encounter for preprocedural laboratory examination (principal); C54.1 Malignant neoplasm of endometrium
CPT/HCPCS: 80053; 85025

== ENCOUNTER 2024-08-10 06:07 | Day surgery (SDC) | payer MEDICARE ==
[2024-08-08 13:37] VITALS: BMI 35.4
[2024-08-10] MEDS ORDERED: Bupivacaine 0.25% HCL 30 ML VIAL ONE (06:24)
[2024-08-10] MEDS ORDERED: EPINEPHrine 1 MG/ML VIAL ONE (06:24)
[2024-08-10] MEDS ORDERED: Lidocaine 1% PF 5 ML VIAL ONE (06:25)
[2024-08-10] MEDS ORDERED: Lidocaine 2% PF 5 ML VIAL ONE (07:11)
[2024-08-10] MEDS ORDERED: PROPOFOL 20 ML ONE (07:11)
[2024-08-10] MEDS ORDERED: CEFAZOLIN 2 GM VIAL ONE (07:13)
[2024-08-10] MEDS ORDERED: Ondansetron PF 4 MG/2 ML Vial ONE (07:14)
[2024-08-10] MEDS ORDERED: Dexamethasone 4 mg/ml Vial ONE (07:14)
[2024-08-10] MEDS ORDERED: fentaNYL 50 mcg/mL 1 mL Vial ONE ×2 (07:15→08:21)
[2024-08-10] MEDS ORDERED: Sodium Chloride 0.9% 250 ML 250 ML ONE (08:05)
[2024-08-10] MEDS ORDERED: ePHEDrine Sulfate 50 MG/10 ML VIAL ONE (08:12)
== END 2024-08-10 10:04 | disposition home or self-care (01) ==
LOC: SDC 06:07
PROVIDERS: ATTEND Surgery
PROC: 05H633Z Insertion of Infusion Device into Left Subclavian Vein, Percutaneous Approach (ICD-10-PCS; principal; 2024-08-10)
DX: C54.1 Malignant neoplasm of endometrium (principal); I10 Essential (primary) hypertension; I48.0 Paroxysmal atrial fibrillation; I47.20 Ventricular tachycardia, unspecified; I25.10 Atherosclerotic heart disease of native coronary artery without angina pectoris; I35.0 Nonrheumatic aortic (valve) stenosis; E11.9 Type 2 diabetes mellitus without complications; E78.5 Hyperlipidemia, unspecified; Z85.3 Personal history of malignant neoplasm of breast; Z90.13 Acquired absence of bilateral breasts and nipples; Z90.710 Acquired absence of both cervix and uterus; Z91.048 Other nonmedicinal substance allergy status; Z88.2 Allergy status to sulfonamides; Z79.01 Long term (current) use of anticoagulants; Z79.899 Other long term (current) drug therapy
CPT/HCPCS: 36561; 71045; C1788; J0171; J0665; J1100; J1642; J2405; J2704; J3010; J7050